=== PATIENT | male | born 1995 | race Caucasian/White ===

== ENCOUNTER 2023-02-24 22:24 | Emergency (ER) | payer SELFPAY ==
[2023-02-25] MEDS ORDERED: Boostrix 0.5 ML (Tdap) VIAL (>/=7 yrs of age) ONE (00:41)
== END 2023-02-25 01:03 | disposition home or self-care (01) ==
LOC: EEVIPCON 22:24 → CSHERS 22:24
DX: S61.303A Unspecified open wound of left middle finger with damage to nail, initial encounter (principal); W31.9XXA Contact with unspecified machinery, initial encounter; Y99.0 Civilian activity done for income or pay; Z23 Encounter for immunization
CPT/HCPCS: 90715; 96372